=== PATIENT | male | born 2005 | race Native Hawaiian/Other Pacific Islander ===

== ENCOUNTER 2023-11-29 13:21 | Emergency (ER) | payer SELFPAY ==
[~2023-11-29] VITALS: Ht 180.3 cm; Wt 127.3 kg
[2023-11-29] MEDS ORDERED: LR 1,000 ML IV ONE (13:45)
[2023-11-29 14:16] LABS: HEMATOCRIT 45.3 % (36.0-47.0); HEMOGLOBIN 15.7 g/dl (12.5-16.1); MEAN CELL VOLUME 84 fl (80.0-95.0); MEAN CORPUSCULAR HEMOGLOBIN 29 pg (26-32); MEAN CORPUSCULAR HGB CONC 35 g/dl (33.0-37.0); MEAN PLATELET VOLUME 10.1 fl (7.4-10.4); PLATELET COUNT 291 K/mm3 (130-400); RED BLOOD COUNT 5.38 M/mm3 (4.20-5.60); REDCELL DISTRIBUTION WIDTH-CV 12.9 % (11.5-14.5)
[2023-11-29 14:34] LABS: CALCIUM 9.9 mg/dL (8.4-10.2); CREATININE, serum 0.96 mg/dL (0.72-1.25); TOTAL PROTEIN 7.4 g/dl (6.2-8.1)
[2023-11-29 15:05] LABS: BILIRUBIN,TOTAL 0.9 mg/dL (0.2-1.2)
[2023-11-29 15:13] LABS: BASO % 0.5 % (0.0-2.0); EOS % 0.6 % (0.0-4.0); GRAN % 78.4 % (42.2-75.2); LYMPH % 14.5 % (20.0-51.0); MONO % 5.7 % (1.7-9.3)
[2023-11-29 15:30] VITALS: BP 142/63; PULSE 96; TEMP 98
== END 2023-11-29 15:30 | disposition home or self-care (01) ==
LOC: COL.ER 13:21
PROVIDERS: Family Medicine
DX: R42 Dizziness and giddiness (principal); R53.81 Other malaise; R07.89 Other chest pain
CPT/HCPCS: J7120